=== PATIENT | female | born 1985 | race Caucasian/White ===

== ENCOUNTER 2025-04-25 23:05 | Emergency (ER) | payer MEDICAID ==
[~2025-04-25] VITALS: Ht 160 cm; Wt 51.0 kg
[2025-04-25 23:18] VITALS: TEMP 96.8
[2025-04-26 00:20] LABS: LEUKOCYTE ESTERASE ,URINE SMALL (Neg); NITRITES, URINE NEGATIVE (Neg); OCCULT BLOOD,URINE NEGATIVE (Neg); URINE HCG NEGATIVE (NEG)
[2025-04-26 00:25] LABS: UA COLLECTION TYPE CLN CATCH MIDSTREAM
[2025-04-26 00:26] LABS: MEAN PLATELET VOLUME 8.7 FL (7.4-10.4); RED CELL DISTRIBUTION WIDTH 16.9 % (11.5-14.5)
[2025-04-26 00:27] LABS: CREATININE 0.81 MG/DL (0.40-0.90); TOTAL CARBON DIOXIDE 21.1 MMOL/L (24-32); eCRCL 75 ML/MIN; eGFR 79 ML/MIN
[2025-04-26 00:28] LABS: MUCUS STRANDS FEW /LPF (Neg); SQUAMOUS EPITHELIAL CELL,UR FEW /LPF (FEW)
[2025-04-26] MEDS: ondansetron/PF 4mg/2ml inj IV ONE (00:30)
[2025-04-26 00:31] LABS: URINE AMPHETAMINE SCREEN NEGATIVE (Neg); URINE BARBITUATE SCREEN NEGATIVE (Neg); URINE BENZODIAZEPINES SCREEN NEGATIVE (Neg); URINE CANNABINOID SCREEN POSITIVE (Neg); URINE COCAINE SCREEN NEGATIVE (Neg); URINE METHADONE SCREEN NEGATIVE (Neg); URINE OPIATE SCREEN NEGATIVE (Neg); URINE PHENCYCLIDINE SCREEN NEGATIVE (Neg)
[2025-04-26] MEDS: ketorolac trometh 15mg/ml vial 15 MG/ML ML IV ONE (00:32)
[2025-04-26 00:34] LABS: ETHANOL < 10 MG/DL (<10)
[2025-04-26 00:48] LABS: LYMPHOCYTES % (MANUAL) 39.0 % (21-51); MONOCYTES % (MANUAL) 3.0 % (2-12); NEUTROPHILS % (MANUAL) 58.0 % (42-75); PLATELET ESTIMATE INCREASED
[2025-04-26 00:49] LABS: ELLIPTOCYTES 1+
--- NOTE | 2025-04-26 01:10 | ELECTROCARDIOGRAPH REPORT ---
[facility] Test Date: 2025-04-26 Test Time: 01:08:35 Pat Name: MILLIE LEON Department: [facility]- Patient ID: [facility]-[id number] Room: Gender: F [employer]: : 1985 Requested By: DONYA HAMILTON Order Number: [id number] Reading MD: Dr. Donya Hamilton Measurements Intervals [place] Rate: 46 P: 60 DE: 133 QRS: 60 QRSD: 88 T: 54 QT: 489 QTc: 428 Interpretive Statements Sinus bradycardia Baseline wander in lead(s) V3 Electronically Signed On 04-26-2025 5:00:[address] Donya Hamilton Please click the below link to view image of tracing.
--- NOTE | 2025-04-26 02:12 | Physician Documentation ---
History of Present Illness Chief Complaint: Abdominal Pain Stated Complaint: ABDOMINAL PAIN Time Seen by MD: 02:10 OK to notify your PCP?: Yes Source: patient, RN/MD, RN notes reviewed, old records Mode of Arrival: POV, Ambulatory Exam Limitations: no limitations HPI 39 year old female with history of anxiety presents to the emergency department for complaints of vomiting that began a few days prior. She states that she was recommenced to try nitrous oxide by a friend due to her pains from her menstrual cycle. She also endorses marijuana use at this time. She states she has been having abdominal pains, nausea, vomiting, diarrhea as well as chills. Last Menstrual Period: Apr 24, 2025 Medication Reconciliation Allergies: Coded Allergies: No Known Allergies (Unverified , 04/25/25) Past Medical History Past Medical History: Anxiety Past Surgical History: no surgical history Last Menstrual Period: Apr 24, 2025 Smoking Status: Current every day smoker Alcohol Use: None Drug Use: marijuana Review of Systems All Other Systems at this time: Reviewed and Negative ROS As stated above in the HPI, otherwise all systems are reviewed and negative. Physical Exam Vital Signs: RN Vital Signs have been reviewed: Yes, Temperature: 96.8, Source: Temporal, Heart Rate: 54, Respiratory Rate: 20, BP: 134/68, Pulse Oximetry: 99, Weight: 50.950 Oxygen Flow Rate: 0 Pulse Oximetry Reflects: adequate oxygenation Physical Exam General: Uncomfortable. Active vomiting. The patient is well developed, well nourished, nontoxic appearing and is in no acute distress. Skin: [place], warm and dry with no rashes. HEENT: Head was normocephalic and atraumatic. Eyes - pupils equal, round, reactive to light and accommodation. Extraocular movements were intact. Conjunctivae were nonicteric. Ears - bilateral tympanic membranes were normal. The mouth and oropharynx were clear with moist mucous membranes. There were no pharyngeal exudates or erythema. Neck: Supple and nontender. There was no jugular venous distention, lymphadenopathy, thyromegaly or masses. Chest: Clear to auscultation bilaterally without wheezes, rales or rhonchi. No accessory muscle use. No dullness to percussion. Heart: Rate regular and rhythmic. S1, S2. No murmurs. Palpation of the chest wall was normal. No rubs or thrills. Abdomen: Soft, nontender and nondistended. Positive bowel sounds. No guarding or rebound. No hepatosplenomegaly or palpable masses. Extremities: No cyanosis, clubbing or edema. The patient moves all extremities. Pulses were equal and symmetric. Neurologic: Cranial nerves II-XII were intact. Sensation was intact to light touch throughout. Motor strength was 5/5 in all four extremities. Deep tendon reflexes were intact in both upper and lower extremities. Psychologic: The patient was oriented to person, place and time. The patient demonstrated appropriate judgement and insight. Progress Results/Orders Reviewed/noted all lab results: Yes Results/Orders Orders - GERARD CHAMBERS MD Cult Urine + [place] [address] (04/26/25 00:28) Completed Orders - GERARD CHAMBERS MD Cbc/Diff (04/25/25 23:42) Lipase (04/25/25 23:42) Ethanol (04/25/25 23:42) MG (04/25/25 23:42) Hcg, Ur Ql (04/25/25 23:42) Drug Screen, Urine (04/25/25 23:42) BMP (04/25/25 23:42) Liver Panel (04/25/25 23:42) Ketorolac Trometh 15mg/Ml Vial (Toradol (04/26/25 00:00) Ondansetron Inj. (Zofran 4mg/2ml Vial) (04/26/25 00:20) Ua W/Microscopic, Cult If Ind (04/26/25 00:08) Man Diff (04/26/25 00:04) Electrocardiogram (04/26/25 01:03) Medications Received in ER Medications (Trade) Dose Ordered Sig/Carmelo Route PRN Reason Start Time Stop Time Status Last Admin Dose Admin (Toradol injection) 15 mg ONCE ONCE IV 04/26/25 00:00 04/26/25 00:01 DC 04/26/25 00:32 15 MG (Zofran 4mg/2ml vial) 4 mg ONCE ONCE IV 04/26/25 00:20 04/26/25 00:21 DC 04/26/25 00:30 4 MG Vital Signs 04/25/25 04/26/25 04/26/25 04/26/25 23:18 00:05 00:10 00:32 Temp 96.8 Pulse 87 58 Resp 22 16 20 16 B/P (MAP) 129/90 129/66 (87) Pulse Ox 100 97 O2 Flow Rate 0 04/26/25 04/26/25 00:53 02:04 Pulse 45 54 Resp 16 20 B/P (MAP) 140/97 (111) 134/68 (90) Pulse Ox 100 99 O2 Flow Rate 0 Laboratory Tests Test 04/26/25 00:04 04/26/25 00:08 White Blood Count 5.9 Red Blood Count 5.70 H Hemoglobin 11.7 L Hematocrit 35.8 Mean Corpuscular Volume 62.7 L Mean Corpuscular Hemoglobin 20.6 L Mean Corpuscular Hemoglobin Concent 32.9 L Red Cell Distribution Width 16.9 H Platelet Count 467 H Mean Platelet Volume 8.7 Neutrophils (%) (Auto) 54.6 Lymphocytes (%) (Auto) 42.2 Monocytes (%) (Auto) 2.3 Eosinophils (%) (Auto) 0.7 Basophils (%) (Auto) 0.2 Neutrophils # (Auto) 3.2 Lymphocytes # (Auto) 2.5 Monocytes # (Auto) 0.1 Eosinophils # (Auto) 0.0 Basophils # (Auto) 0.0 CBC Comment Differential Total Cells Counted 100 Neutrophils % (Manual) 58.0 Lymphocytes % (Manual) 39.0 Monocytes % (Manual) 3.0 Smudge Cells Few Platelet Estimate Increased Red Blood Cell Morphology Perf Basophilic Stippling Anisocytosis 1+ Microcytosis 1+ Elliptocytes 1+ Sodium Level 136 Potassium Level 3.5 Chloride Level 103 Carbon Dioxide Level 21.1 L Anion Gap 12 Blood Urea Nitrogen 13 Creatinine 0.81 Estimated GFR/1.73 m2 79 BUN/Creatinine Ratio 16.0 Glucose Level 148 H Calcium Level 9.3 Magnesium Level 2.2 Total Bilirubin 0.9 Direct Bilirubin 0.2 Aspartate Amino Transf (AST/SGOT) 14 Alanine Aminotransferase (ALT/SGPT) 19 Alkaline Phosphatase 84 Total Protein 8.0 Albumin 4.4 Globulin 3.6 Albumin/Globulin Ratio 1.2 Lipase 36 Chemistry Comments Ethyl Alcohol Level < 10 Urine Specimen Description Cln catch midstream Urine Color Yellow Urine Clarity Clear Urine pH 8.5 Urine Specific [place] 1.010 Urine Protein 100 H Urine Glucose (UA) Negative Urine Ketones 15 H Urine Occult Blood Negative Urine Nitrite Negative Urine Bilirubin Negative Urine Urobilinogen 0.2 Urine Leukocyte Esterase Small H Urine RBC 0-2 Urine WBC 0-4 Urine Squamous Epithelial Cells Few Urine Bacteria Few Urine Mucus Few Urine Culture Indicated Indicated Volume Urine Centrifuged 10 ml Urine HCG, Qualitative Negative Urine Comment Urine Opiates Screen Negative Urine Methadone Screen Negative Urine Fentanyl Screen Positive H Urine Barbiturates Screen Negative Urine Phencyclidine Screen Negative Urine Amphetamines Screen Negative Urine Benzodiazepines Screen Negative Urine Cocaine Screen Negative Urine Cannabinoids Screen Positive Drug Screen Comment Microbiology Date/Time Source Procedure Growth Status 04/26/25 00:28 Urine Clean Catch Midstream Urine Culture - Preliminary Culture received. Resulted Re-Evaluation Re-Evaluation : Re-Evaluation: Improved Progress Patient was seen and examined. Patient was given reassurance. The patient was having some withdrawal symptoms most likely from the fentanyl. She has been having some dysmenorrhea but has been using nitrous in his not feeling well. She also tried marijuana was having cyclic vomiting like presentation as well but has not had many drugs. She is new to the area from the [facility] prior history is is limited. She appeared well otherwise she received some benzodiazepines laboratory work was obtained. Her CBC was reassuring. WBC is 5.9 hemoglobin hematocrit 11.7 and 35. Platelets 467 without any left shift. Chemistry was within normal limits CO2 slightly low at 21.1. LFTs within normal limits. HCG is negative UA showed a few squamous epithelial cells did not treat the urine with small leukocyte esterase 0-2 RBCs 0-4 WBCs with a few squamous epithelial cells. Cultures are pending. Patient's tox screen was positive for fentanyl and marijuana negative alcohol. Patient was slightly nauseated. Patient received Toradol Zofran and later received Haldol Compazine morphine and additional fluids. She was allowed to rest and ultimately was discharged home. Withdrawal symptoms versus acute illness such as GI infections gastroenteritis vomiting viral syndrome anxiety polysubstance drug abuse as well as possible surgical etiologies except the abdomen was soft and unlikely. Ultimately patient was discharged home in the morning prior to shift change in his feeling much better. Continuous night monitor interpretation shows normal sinus rhythm heart rate 60s, no ectopy, normal, my Interpretation. Pulse oximetry monitor interpretation shows normal oxygenation at 99% room air, normal, my interpretation. EKG/XRAY/CT/US/VASC/MRI EKG : Additional Comment CHEST RADIOGRAPH Indication: sob Technique: Frontal and lateral view of the chest was obtained Comparison: DI CHEST,SINGLE VIEW on DOS: 04/13/25, DI CHEST,SINGLE VIEW on DOS: 04/13/25, DI CHEST,SINGLE VIEW on DOS: 03/14/25, CT CTA CHEST PE W/ IV CONTRAST on DOS: 02/02/25, DI CHEST,SINGLE VIEW on DOS: 02/02/25 FINDINGS: Lines and Tubes: None Lungs: Moderate diffuse increased prominence of the pulmonary vasculature without evidence of focal consolidation. Pleura: No effusion. No pneumothorax. Cardiomediastinal contours: Cardiomegaly Bones: Unremarkable IMPRESSION: 1. Cardiomegaly and moderate diffuse increased prominence of the pulmonary vasculature. Electronically Signed by:DAVONTE LYON MD Date & Time: 04/26/25 041 Medical Decision Making Additional info obtained from: old records Differential Dx:Considerations: Include: Aortic dissection, Appendicitis, Bowel obstruction, Cholangitis, Cholelithasis, Constipation, Diverticular disease, Esophageal rupture, Esophagitis, Gastritis/PUD, Gastroenteritis, GI hemorrhage, Hernia, Hepatitis, Inflammatory BD, Ischemic bowel, Ovarian cyst/torsion, Pancreatitis, PID, Urinary obstruction, Urinary tract infection, Urolithiasis, Other Departure Time of Disposition: 05:05 Disposition: 01 HOME / SELF CARE / HOMELESS Impression: Primary Impression: Narcotic withdrawal Additional Impression: Cyclical vomiting Condition: Stable Discharge Instructions: Vomiting, Adult Referrals: NO PRIMARY CARE PROVIDER (PCP) Education Educated: Patient, Family Educated regarding: diagnosis, treatment, prognosis Signature Scribe Signature: Scribed for Gerard Chambers MD by Fauzia Jones . 04/26/25 02:35 Attestation: The note accurately reflects work and decisions made by me.Gerard Chambers MD 04/26/25 02:12 GERARD CHAMBERS MD Apr 26, 2025 02:12 FAUZIA LEAHY Apr 26, 2025 02:35
[2025-04-26] MEDS: normal saline 1000ml 1,000 ML IV ONE (02:35)
[2025-04-26] MEDS: haloperidol lactate 5mg/ml inj IM ONE (02:43)
[2025-04-26] MEDS: normal saline 1000ML IV soln IVB ONE (02:59)
[2025-04-26 05:18] VITALS: BP 122/68; PULSE 56; RESP 16; O2SAT 98
== END 2025-04-26 05:20 | disposition home or self-care (01) ==
LOC: ER 23:06
DX: F11.23 Opioid dependence with withdrawal (principal); R11.15 Cyclical vomiting syndrome unrelated to migraine; F12.90 Cannabis use, unspecified, uncomplicated; F17.200 Nicotine dependence, unspecified, uncomplicated
CPT/HCPCS: 80048; 80076; 80305; 80320; 81001; 81025; 83690; 83735; 85007; 85025; 87077; 87088; 87186; 93005; 96361; 96372; 96374; 96375; 99284; J0780; J1630; J1885; J2405; J7030

== ENCOUNTER 2025-04-27 20:12 | Emergency (ER) | payer MEDICAID, OTHER ==
[~2025-04-27] VITALS: Ht 162.6 cm; Wt 47.8 kg
[2025-04-28] MEDS ORDERED: LIDOcaine 1% w/epiNEPHrine 1:200,000 30ml vial SQ STA (00:55)
[2025-04-28] MEDS: LIDOcaine 1% W/epiNEPHrine 1:100,000 20ml vial IJ ONE (01:05)
--- NOTE | 2025-04-28 01:28 | RADIOLOGY REPORT ---
CLINICAL INDICATION: foreign body TECHNIQUE: 3 views left foot DI FOOT, COMPLETE (3VW MIN) Comparison: None FINDINGS/IMPRESSION: : A 1.6 cm linear metallic density projects within the plantar soft tissues at the base of the 5th toe, partially external. No significant associated soft tissue swelling. No acute fracture. Normal osseous mineralization. No significant degenerative changes.
--- NOTE | 2025-04-28 01:39 | Physician Documentation ---
History of Present Illness ~ Chief Complaint: Foreign body Stated Complaint: FISH HOOK IN FOOT Time Seen by MD: 01:37 OK to notify your PCP?: Yes Source: patient, RN/MD, RN notes reviewed, old records Mode of Arrival: POV Exam Limitations: no limitations HPI BED 12 This patient is a 39 y/o female who presents to ED for fish hook in her left foot. Patient states her 10 year old was playing with some fishing lures on the rug, and that when attempting to clean them up she accidentally stepped on one. Patient states she was unable to pull out the hook herself. She reports severe throbbing pain in her left foot. Her last tetanus immunization was 8 years ago. She has not had anything for pain prior to arrival. Patient denies any other associated symptoms at this time. Patient denies any other alleviating or exacerbating factors. Tetanus witin 5 years: No Medication Reconciliation Allergies: Coded Allergies: No Known Allergies (Unverified , 04/27/25) Scheduled Sulfamethoxazole/Trimethoprim (Bactrim Ds Tablet), 1 TAB PO Q12H Scheduled PRN ONDANSETRON ODT 4mg tablet (Ondansetron Odt), 1 TAB PO Q6H PRN PRN for nausea/vomiting Past Medical History Past Medical History: Anxiety Past Surgical History: no surgical history Smoking Status: Current every day smoker Alcohol Use: None Drug Use: marijuana Review of Systems All Other Systems at this time: Reviewed and Negative Physical Exam Vital Signs: RN Vital Signs have been reviewed: Yes, Temperature: 96.8, Heart Rate: 98, Respiratory Rate: 15, BP: 110/65, Pulse Oximetry: 98, Weight: 47.800 Physical Exam General: The patient is well developed, well nourished, nontoxic appearing and is in no acute distress. Skin: LEFT FOOT: Fish hook embedded in the skin at the base of the lateral aspect of the left fifth toe, just proximal to MP joint. Skin otherwise pink, warm and dry with no rashes. HEENT: Head was normocephalic and atraumatic. Eyes - pupils equal, round, reactive to light and accommodation. Extraocular movements were intact. Conjunctivae were nonicteric. The mouth and oropharynx were clear with moist mucous membranes. There were no pharyngeal exudates or erythema. Neck: Supple and nontender. There was no jugular venous distention, lymphadenopathy, thyromegaly or masses. Chest: Clear to auscultation bilaterally without wheezes, rales or rhonchi. No accessory muscle use. No dullness to percussion. Heart: Rate regular and rhythmic. S1, S2. No murmurs. Palpation of the chest wall was normal. No rubs or thrills. Abdomen: Soft, nontender and nondistended. Positive bowel sounds. No guarding or rebound. No hepatosplenomegaly or palpable masses. Extremities: (SEE SKIN) No cyanosis, clubbing or edema. The patient moves all extremities. Pulses were equal and symmetric. Neurologic: Motor and sensation grossly intact. A & O x4. Psychologic: The patient was oriented to person, place and time. Procedures Skin Foreign Body Removal : Site: Left foot Anesthesia: Lidocaine w/ Epi Volume Anesthetic (mls): 2 Blade Size: 11 Supplies/Prep: betadine prep, irrigated Foreign Body Removal: completely, removed Tolerated Procedure Well?: yes, no complications Progress Results/Orders Reviewed/noted all lab results: Yes Results/Orders Orders - GERARD CHAMBERS MD, Complete (3vw Min) (04/28/25 00:54) Tetanus/Diphtheria/Pertussis (04/28/25 02:30) Completed Orders - GERARD CHAMBERS MD, Complete (3vw Min) (04/28/25 00:54) Lidocaine 1% W/Epi 1:100,000 (Xylocaine (04/28/25 01:00) Hydrocodone/Apap 10/325 ([place] 10/325mg (04/28/25 01:50) Sulfamethox/Trimetho. Ds Tab (Septra Ds (04/28/25 02:20) Medications Received in ER Medications (Trade) Dose Ordered Sig/Carmelo Route PRN Reason Start Time Stop Time Status Last Admin Dose Admin ([place] 10/325mg tab) 1 tab ONCE ONCE PO 04/28/25 01:50 04/28/25 01:51 DC 04/28/25 02:25 1 TAB (Septra DS tab) 1 tab ONCE ONCE PO 04/28/25 02:20 04/28/25 02:21 DC 04/28/25 02:24 1 TAB Vital Signs 04/27/25 04/28/25 20:35 02:25 Temp 96.8 Pulse 98 Resp 15 16 B/P (MAP) 110/65 Pulse Ox 98 Re-Evaluation Re-Evaluation : Re-Evaluation: Improved Progress Patient was seen and examined. Patient is given reassurance. Patient has a foreign body. She was injected with lidocaine given Bactrim for prophylactic treatments [place] for pain. X-rays confirm foreign body the angle. Patient was discharged home after it was removed. Patient tolerated procedure without any complications. 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 Patient appeared well at time of discharge. EKG/XRAY/CT/US/VASC/MRI Bone/Soft Tissue X-Ray (Ext.) : Interpreted By: both Additional Comment [address] [address] DIAGNOSTIC RADIOLOGY Patient: MILLIE LEON Medical Record: [id number] [facility] 1985, Age: 39 Sex: Female Location: ER Patient Status: [facility] ER Service Date/Time: 04/28/2553 Ordering Physician: GERARD CHAMBERS MD Exam: FOOT, COMPLETE (3VW MIN) CLINICAL INDICATION: foreign body TECHNIQUE: 3 views left foot DI FOOT, COMPLETE (3VW MIN) Comparison: None FINDINGS/IMPRESSION: : A 1.6 cm linear metallic density projects within the plantar soft tissues at the base of the 5th toe, partially external. No significant associated soft tissue swelling. No acute fracture. Normal osseous mineralization. No significant degenerative changes. Electronically Signed by:KIMBERLY MODI MD Date & Time: 04/28/25124 Dictated by: KIMBERLY MODI MD Dictation date and time: 08/04/25 0125 Primary Care Provider: NO PRIMARY CARE PROVIDER cc: GERARD CHAMBERS MD ~ IMAGES REVIEWED BY EDMD DR. CHAMBERS WHO AGREES WITH ABOVE FINDINGS Medical Decision Making Foot Diff Dx:Considerations: Include: Other Departure Time of Disposition: 02:24 Disposition: 01 HOME / SELF CARE / HOMELESS Impression: Primary Impression: Fish hook in foot Condition: Stable Discharge Instructions: Hand or Foot Foreign Body, Adult, Skin Foreign Body Additional Instructions: Take medications as prescribed. Referrals: NO PRIMARY CARE PROVIDER (PCP) Prescriptions Sulfamethoxazole/Trimethoprim (Bactrim Ds Tablet) 800 Mg-160 Mg Tablet 1 TAB PO Q12H for 7 Days, #14 TAB Prov: GERARD CHAMBERS MD 04/28/25 ONDANSETRON ODT 4mg tablet (ONDANSETRON ODT) 4 Mg Tab.rapdis 1 TAB PO Q6H PRN PRN for nausea/vomiting for 4 Days, #16 TAB 0 Refills Prov: GERARD CHAMBERS MD 04/28/25 Education Educated: Patient Educated regarding: diagnosis, treatment, need for follow up Signature Scribe Signature: Scribed for Gerard Chambers MD by Peri Mcgregor 04/28/25 02:07 Attestation: The note accurately reflects work and decisions made by me.Gerard Chambers MD 04/28/25 01:38 GERARD CHAMBERS MD Apr 28, 2025 01:39
[2025-04-28] MEDS ORDERED: ONDA-243 PO (02:19)
[2025-04-28] MEDS ORDERED: SULF1TAB49 PO (02:19)
[2025-04-28] MEDS: sulfamethoxazole/trimethoprim DS (800/160mg) tablet PO ONE (02:24)
[2025-04-28] MEDS: HYDROcodone/acetaminophen 10/325mg tab PO ONE (02:25)
[2025-04-28] MEDS: TETanus/Pertussis (Acell)/Diphther VAC/PF (Tdap-Adult) 0.5ml syringe IMVAC ONE (02:34)
[2025-04-28 02:40] VITALS: BP 106/65; PULSE 89; RESP 16; TEMP 97; O2SAT 99
== END 2025-04-28 02:44 | disposition home or self-care (01) ==
LOC: ER 20:12
DX: S90.852A Superficial foreign body, left foot, initial encounter (principal); F12.90 Cannabis use, unspecified, uncomplicated; F17.200 Nicotine dependence, unspecified, uncomplicated; F41.9 Anxiety disorder, unspecified; Z79.899 Other long term (current) drug therapy; W45.8XXA Other foreign body or object entering through skin, initial encounter; Y93.89 Activity, other specified; Y92.89 Other specified places as the place of occurrence of the external cause; Y99.8 Other external cause status
CPT/HCPCS: 73630; 90471; 90715; 99284